=== PATIENT | male | born 1965 | race Caucasian/White ===

== ENCOUNTER 2023-05-25 06:56 | Day surgery (SDC) | payer BC ==
[~2023-05-25 06:56] MED LIST: Lactated Ringers 1,000 ML IV SCH; Morphine 8 MG, EPINEPHrine 0.3 MG, Cefuroxime 750 MG, Ketorolac 30 MG, Sodium Chloride ... PRN; Sodium Chloride 0.9% 10 ML Syringe FLUSH PRN; Sodium Chloride 0.9% 10 ML Syringe FLUSH SCH
[2023-05-25] MEDS ORDERED: Vancomycin 1 GM SDV ONE (06:59)
[2023-05-25] MEDS ORDERED: Tranexamic Acid 1,000 MG/10 ML Vial ONE (06:59)
[2023-05-25] MEDS ORDERED: Pregabalin 25 MG Cap PO SCH (07:00)
[2023-05-25] MEDS ORDERED: oxyCODONE ER 10 MG TAB.ER PO SCH (07:00)
[2023-05-25] MEDS ORDERED: fentaNYL 100 MCG/2 ML SDV ONE (07:09)
[2023-05-25] MEDS ORDERED: Midazolam 1 MG/ML 2 ML SDV ONE (07:09)
[2023-05-25] MEDS ORDERED: Propofol 200 MG/20 ML SDV ONE ×2 (07:10→09:10)
[2023-05-25] MEDS ORDERED: Lidocaine 1% 2 ML ONE (07:10)
[2023-05-25] MEDS ORDERED: ceFAZolin 2 GM Vial ONE (07:10)
[2023-05-25] MEDS: Acetaminophen 325 MG Tab PO SCH ×2 (07:27→07:28)
[2023-05-25] MEDS ORDERED: Ondansetron 4 MG/2 ML SDV IVPUSH PRN (07:29)
[2023-05-25] MEDS ORDERED: HYDROmorphone 0.5 MG/0.5 ML Syringe IVPUSH PRN (07:29)
[2023-05-25] MEDS ORDERED: fentaNYL 100 MCG/2 ML SDV IVPUSH PRN (07:29)
[2023-05-25] MEDS ORDERED: oxyCODONE 5 MG Tab PO PRN (10:11)
[2023-05-25] MEDS ORDERED: oxyCODONE ER 10 MG TAB.ER PO ONE (11:50)
== END 2023-05-25 13:27 | disposition home or self-care (01) ==
LOC: JD.SDS 06:56
PROVIDERS: ATTEND Orthopaedic Surgery
DX: M16.12 Unilateral primary osteoarthritis, left hip (principal); E78.2 Mixed hyperlipidemia; K21.9 Gastro-esophageal reflux disease without esophagitis; E55.9 Vitamin D deficiency, unspecified; I10 Essential (primary) hypertension; Z87.891 Personal history of nicotine dependence; Z79.82 Long term (current) use of aspirin; Z79.899 Other long term (current) drug therapy; G47.00 Insomnia, unspecified
CPT/HCPCS: 0055T; 27130; 73501; 97110; 97116; 97161; A9270; C1713; C1776; J0171; J0690; J0697; J1885; J2250; J2270; J2405; J2704; J3010; J3370; J7120; 01210; J3490